=== PATIENT | male | born 1955 | race African-American/Black ===

== ENCOUNTER 2019-06-24 04:58 | Inpatient (IN) ==
[2019-06-24] MEDS ORDERED: methylPREDNISolone SOD SUC 125 MG/2 ML VIAL IV STA (05:30)
[2019-06-24] MEDS ORDERED: ALBUTEROL/IPRATROPIUM 3 ML NEB RESP TX STA (05:30)
[2019-06-24 05:37] LABS: Basophils # 0.2 10*3/uL (0.0-0.2); Basophils % 0.5 % (0.0-0.8); Eosinophils # 2.5 10*3/uL (0.0-0.87); Hematocrit 44.7 VOL% (42.0-52.0); Hemoglobin 14.6 GM/DL (14.0-18.0); Immature Granulocytes % 4.8 %; Immature Granulocytes Absolute 1.52 #; Lymphocytes # 1.3 10*3/uL (1.4-4.0); Lymphocytes % 4.3 % (21.2-54.2); Mean Corpuscular HGB Conc 32.7 GM/DL (32-36); Mean Corpuscular Volume 91.4 FL (87-102); Mean Platelet Volume 10.3 FL (9.6-12.0); Monocytes % 4.7 % (1.7-12.7); Neutrophils % 77.7 % (38.7-73.9); Platelet Count 247 T/CUMM (130-400); Red Blood Count 4.89 MC/CUMM (3.8-5.5); Red Cell Distribution Width 13.6 % (9.3-17.3); White Blood Count 31.4 T/CUMM (4-12)
[2019-06-24 06:00] LABS: Band Neutrophils 3 % (0-10); Eosinophils 10 % (0-10); Lymphocytes 5 % (20-55); Segmented Neutrophils 77 % (50-85); Total Cells Counted 100
[2019-06-24 06:01] LABS: Hypochromasia Slight; Platelet Estimate Normal
[2019-06-24] MEDS ORDERED: LEVOFLOXACIN INJ 500 MG in PREMIX 1 EACH IV STA (06:28)
[2019-06-24] MEDS ORDERED: FUROSEMIDE 40 MG/4 ML VIAL IV STA (06:28)
[2019-06-24 06:55] LABS: Alanine Aminotransferase 20 U/L (16-61); Albumin 2.7 G/DL (3.4-5.0); Alkaline Phosphatase 101 U/L (45-117); Aspartate Amino Transferase 9 U/L (0-37); Bilirubin,Total < 0.39 MG/DL (0.2-1.0); Blood Urea Nitrogen 29 MG/DL (7-18); Estimated Glom Filtration Rate 100 ML/MIN; Glucose 339 MG/DL (74-106); Osmolality,Calculated 291.8 MOS/KG (273-304); Total Protein 7.4 G/DL (6.4-8.3)
[2019-06-24] MEDS ORDERED: ACETAMINOPHEN 325 MG TABLET PO PRN (08:26)
[2019-06-24] MEDS ORDERED: DEXTROSE 50% 25 GM/50 ML VIAL IV PRN (08:26)
[2019-06-24] MEDS ORDERED: ALBUTEROL 2.5 MG/3 ML NEB RESP TX PRN (08:30)
[2019-06-24 08:56] LABS: Risk Ratio 3.26; Thyroid Stimulating Hormone 1.84 uIU/ml (0.358-3.74); VLDL CHOLESTEROL 29.8 MG/DL
[2019-06-24] MEDS: ALBUTEROL/IPRATROPIUM 3 ML NEB RESP TX SCH ×2 (13:00→19:44)
[2019-06-24] MEDS: ENOXAPARIN 40 MG/0.4 ML SYRINGE SUBCUT SCH (13:04)
[2019-06-24] MEDS: PIPERACILLIN/TAZOBACTAM 3,375 MG in SODIUM CHLORIDE 0.9% 100 ML IV SCH ×2 (13:04→23:07)
[2019-06-24] MEDS: PANTOPRAZOLE 40 MG TABLET PO SCH (13:05)
[2019-06-24] MEDS: INSULIN LISPRO 100 UNIT/ML SUBCUT SCH ×4 (13:05→23:09)
[2019-06-24] MEDS ORDERED: SODIUM CHLORIDE 0.9% 1,000 ML IV ONE ×2 (14:08→17:15)
[2019-06-24] MEDS: INSULIN NPH/REGULAR 70/30 100 UNIT/ML SUBCUT SCH (16:56)
[2019-06-24] MEDS: PENTOXIFYLLINE 400 MG TABLET PO SCH (16:56)
[2019-06-24] MEDS: TAMSULOSIN 0.4 MG CAPSULE PO SCH (18:07)
[2019-06-24 18:08] LABS: Apearance,Urine CLEAR (Clear); Bilirubin,Urine Negative (Negative); Blood, Urine Negative (Negative); Glucose,Urine (UA) >=500 mg/dL (Negative); Hyaline Casts,Urine 3 /LPF (0-3); Ketones,Urine 5 mg/dL (Negative); Mucus,Urine Occasional /LPF (Occasional); Nitrite,Urine Negative (Negative); Protein,Urine Negative; RBC,Urine 16 /HPF (0-4); Squamous Epithelial Cell,Urine Occasional /HPF (0-10); Urine Color Yellow (Yellow); Urine Urobilinogen < 2.0 EU/DL (0.2-1.0); WBC,Urine 5 /HPF (0-6)
[2019-06-24] MEDS: VANCOMYCIN INJ 2,000 MG in SODIUM CHLORIDE 0.9% 500 ML IV SCH (18:38)
[2019-06-24] MEDS: carvediloL 3.125 MG TABLET PO SCH (23:05)
[2019-06-24] MEDS: SODIUM CHLORIDE 0.9% 1,000 ML IV SCH (23:08)
[2019-06-25] MEDS: ONDANSETRON 4 MG/2 ML VIAL IV PRN ×3 (00:25→21:14)
[2019-06-25] MEDS: ALUMINUM/MAGNES/SIMETH MAX STR 30 ML UDCUP PO PRN ×2 (01:23→21:14)
[2019-06-25] MEDS: ALBUTEROL/IPRATROPIUM 3 ML NEB RESP TX SCH ×4 (01:57→19:20)
[2019-06-25 03:05] LABS: Basophils # 0.2 10*3/uL (0.0-0.2); Basophils % 0.4 % (0.0-0.8); Eosinophils # 2.3 10*3/uL (0.0-0.87); Eosinophils % 5.7 % (0.00-10.9); Hematocrit 40.9 VOL% (42.0-52.0); Hemoglobin 13.3 GM/DL (14.0-18.0); Immature Granulocytes % 6.4 %; Immature Granulocytes Absolute 2.52 #; Lymphocytes # 1.5 10*3/uL (1.4-4.0); Lymphocytes % 3.7 % (21.2-54.2); Mean Corpuscular HGB Conc 32.5 GM/DL (32-36); Mean Corpuscular Volume 92.3 FL (87-102); Mean Platelet Volume 10.3 FL (9.6-12.0); Monocytes % 9.5 % (1.7-12.7); Neutrophils % 74.3 % (38.7-73.9); Platelet Count 250 T/CUMM (130-400); Red Blood Count 4.43 MC/CUMM (3.8-5.5); Red Cell Distribution Width 13.8 % (9.3-17.3); White Blood Count 39.5 T/CUMM (4-12)
[2019-06-25 03:23] LABS: Calcium 8.7 MG/DL (8.5-10.1); Osmolality,Calculated 292.4 MOS/KG (273-304)
[2019-06-25 05:14] LABS: Anisocytosis 1+; Band Neutrophils 3 % (0-10); Eosinophils 7 % (0-10); Lymphocytes 8 % (20-55); Platelet Estimate Adequate; Segmented Neutrophils 77 % (50-85); Total Cells Counted 100
[2019-06-25 05:15] LABS: Hypochromasia Slight
[2019-06-25] MEDS: PIPERACILLIN/TAZOBACTAM 3,375 MG in SODIUM CHLORIDE 0.9% 100 ML IV SCH ×3 (05:56→21:14)
[2019-06-25] MEDS: METOCLOPRAMIDE 10 MG TABLET PO SCH (06:12)
[2019-06-25] MEDS: VANCOMYCIN INJ 2,000 MG in SODIUM CHLORIDE 0.9% 500 ML IV SCH ×2 (06:12→17:38)
[2019-06-25] MEDS ORDERED: LUBIPROSTONE 8 MCG CAPSULE PO SCH (08:00)
[2019-06-25] MEDS: DUTASTERIDE 0.5 MG CAPSULE PO SCH (08:48)
[2019-06-25] MEDS: ASPIRIN EC 81 MG TABLET PO SCH (08:48)
[2019-06-25] MEDS: carvediloL 3.125 MG TABLET PO SCH ×2 (08:48→21:14)
[2019-06-25] MEDS: INSULIN NPH/REGULAR 70/30 100 UNIT/ML SUBCUT SCH ×2 (08:48→15:34)
[2019-06-25] MEDS: LISINOPRIL/HCTZ 10-12.5 MG TABLET PO SCH (08:48)
[2019-06-25] MEDS: PANTOPRAZOLE 40 MG TABLET PO SCH (08:48)
[2019-06-25] MEDS: ATORVASTATIN 40 MG TABLET PO SCH (08:48)
[2019-06-25] MEDS: CLOPIDOGREL 75 MG TABLET PO SCH (08:48)
[2019-06-25] MEDS: PENTOXIFYLLINE 400 MG TABLET PO SCH ×3 (08:48→17:37)
[2019-06-25] MEDS: TAMSULOSIN 0.4 MG CAPSULE PO SCH ×2 (08:48→17:38)
[2019-06-25] MEDS: ENOXAPARIN 40 MG/0.4 ML SYRINGE SUBCUT SCH (08:48)
[2019-06-25] MEDS: INSULIN LISPRO 100 UNIT/ML SUBCUT SCH ×4 (08:49→21:15)
[2019-06-25] MEDS: SODIUM CHLORIDE 0.9% 1,000 ML IV SCH ×2 (08:51→16:04)
[2019-06-25] MEDS: LEVOFLOXACIN INJ 750 MG in PREMIX 1 EACH IV SCH (10:23)
[2019-06-25] MEDS: SIMETHICONE CHEW 125 MG TABLET PO PRN (13:18)
[2019-06-25] MEDS: predniSONE 10 MG TABLET PO SCH (15:58)
[2019-06-25] MEDS: SUCRALFATE 1 GM TABLET PO SCH ×2 (17:38→21:14)
[2019-06-25] MEDS: LUBIPROSTONE 8 MCG CAPSULE PO SCH (21:14)
[2019-06-26] MEDS: ALBUTEROL/IPRATROPIUM 3 ML NEB RESP TX SCH ×4 (00:15→20:23)
[2019-06-26] MEDS: SODIUM CHLORIDE 0.9% 1,000 ML IV SCH ×2 (04:22→17:23)
[2019-06-26] MEDS: PIPERACILLIN/TAZOBACTAM 3,375 MG in SODIUM CHLORIDE 0.9% 100 ML IV SCH ×3 (04:29→20:38)
[2019-06-26] MEDS: VANCOMYCIN INJ 2,000 MG in SODIUM CHLORIDE 0.9% 500 ML IV SCH ×2 (05:38→18:36)
[2019-06-26 05:42] LABS: Basophils # 0.1 10*3/uL (0.0-0.2); Basophils % 0.1 % (0.0-0.8); Eosinophils # 5.2 10*3/uL (0.0-0.87); Eosinophils % 10.8 % (0.00-10.9); Hematocrit 40.2 VOL% (42.0-52.0); Hemoglobin 12.9 GM/DL (14.0-18.0); Immature Granulocytes % 6.9 %; Immature Granulocytes Absolute 3.31 #; Lymphocytes # 1.5 10*3/uL (1.4-4.0); Lymphocytes % 3.1 % (21.2-54.2); Mean Corpuscular HGB Conc 32.1 GM/DL (32-36); Mean Corpuscular Volume 94.4 FL (87-102); Mean Platelet Volume 10.1 FL (9.6-12.0); Monocytes % 6.7 % (1.7-12.7); Neutrophils % 72.4 % (38.7-73.9); Platelet Count 224 T/CUMM (130-400); Red Blood Count 4.26 MC/CUMM (3.8-5.5); Red Cell Distribution Width 14.1 % (9.3-17.3)
[2019-06-26 05:47] LABS: White Blood Count 47.9 T/CUMM (4-12)
[2019-06-26 06:06] LABS: Band Neutrophils 15 % (0-10); Eosinophils 11 % (0-10); Segmented Neutrophils 69 % (50-85); Total Cells Counted 100
[2019-06-26 06:07] LABS: Anisocytosis 1+; Platelet Estimate Adequate
[2019-06-26 06:15] LABS: Calcium 8.1 MG/DL (8.5-10.1); Osmolality,Calculated 296.1 MOS/KG (273-304)
[2019-06-26] MEDS: METOCLOPRAMIDE 10 MG TABLET PO SCH (06:29)
[2019-06-26] MEDS: ONDANSETRON 4 MG/2 ML VIAL IV PRN ×4 (08:16→21:15)
[2019-06-26] MEDS ORDERED: GLUCAGON 1 MG VIAL IM PRN (10:51)
[2019-06-26] MEDS ORDERED: DEXTROSE 50% 25 GM/50 ML VIAL IV PRN (10:51)
[2019-06-26] MEDS: INSULIN LISPRO 100 UNIT/ML SUBCUT SCH ×4 (11:22→20:38)
[2019-06-26] MEDS: SUCRALFATE 1 GM TABLET PO SCH ×5 (11:23→20:38)
[2019-06-26 12:00] LABS: Total Protein,Body Fluid 2.7 G/DL
[2019-06-26] MEDS: INSULIN NPH/REGULAR 70/30 100 UNIT/ML SUBCUT SCH ×2 (12:16→17:23)
[2019-06-26] MEDS: DUTASTERIDE 0.5 MG CAPSULE PO SCH (12:16)
[2019-06-26] MEDS: ASPIRIN EC 81 MG TABLET PO SCH (12:16)
[2019-06-26] MEDS: ATORVASTATIN 40 MG TABLET PO SCH (12:17)
[2019-06-26] MEDS: PANTOPRAZOLE 40 MG TABLET PO SCH (12:17)
[2019-06-26] MEDS: LUBIPROSTONE 8 MCG CAPSULE PO SCH ×2 (12:17→20:38)
[2019-06-26] MEDS: carvediloL 3.125 MG TABLET PO SCH ×2 (12:17→20:38)
[2019-06-26] MEDS: CLOPIDOGREL 75 MG TABLET PO SCH (12:17)
[2019-06-26] MEDS: TAMSULOSIN 0.4 MG CAPSULE PO SCH ×3 (12:17→17:42)
[2019-06-26] MEDS: LISINOPRIL/HCTZ 10-12.5 MG TABLET PO SCH (12:17)
[2019-06-26] MEDS: PENTOXIFYLLINE 400 MG TABLET PO SCH ×3 (12:17→17:31)
[2019-06-26] MEDS: predniSONE 10 MG TABLET PO SCH (12:19)
[2019-06-26] MEDS: LEVOFLOXACIN INJ 750 MG in PREMIX 1 EACH IV SCH (12:34)
[2019-06-26] MEDS: ENOXAPARIN 40 MG/0.4 ML SYRINGE SUBCUT SCH (12:36)
[2019-06-26 12:40] LABS: Eosinophils,Pleural Fluid 5 %; Lymphocytes,Pleural Fluid 55 %; Monocytes,Pleural Fluid 1 %; Neutrophils,Pleural Fluid 37 %; RBC,Pleural Fluid 11243 T/CUMM
[2019-06-26] MEDS ORDERED: SODIUM PHOSPHATE ENEMA 133 ML BOTTLE RECTAL ONE (14:11)
[2019-06-26] MEDS ORDERED: LACTULOSE 20 GM/30 ML UDCUP PO PRN (14:14)
[2019-06-27] MEDS: ALBUTEROL/IPRATROPIUM 3 ML NEB RESP TX SCH ×4 (00:23→19:44)
[2019-06-27] MEDS: ONDANSETRON 4 MG/2 ML VIAL IV PRN ×3 (02:50→21:03)
[2019-06-27 04:59] LABS: Basophils # 0.3 10*3/uL (0.0-0.2); Basophils % 0.5 % (0.0-0.8); Eosinophils # 5.2 10*3/uL (0.0-0.87); Eosinophils % 10.9 % (0.00-10.9); Hemoglobin 13.9 GM/DL (14.0-18.0); Immature Granulocytes % 6.5 %; Immature Granulocytes Absolute 3.11 #; Lymphocytes # 1.4 10*3/uL (1.4-4.0); Lymphocytes % 2.9 % (21.2-54.2); Mean Corpuscular HGB Conc 31.6 GM/DL (32-36); Mean Corpuscular Volume 95.7 FL (87-102); Mean Platelet Volume 10.5 FL (9.6-12.0); Monocytes % 5.9 % (1.7-12.7); Neutrophils % 73.3 % (38.7-73.9); Platelet Count 199 T/CUMM (130-400); Red Cell Distribution Width 14.2 % (9.3-17.3)
[2019-06-27] MEDS: SODIUM CHLORIDE 0.9% 1,000 ML IV SCH ×2 (05:18→15:54)
[2019-06-27 05:45] LABS: Calcium 7.9 MG/DL (8.5-10.1); Osmolality,Calculated 297.5 MOS/KG (273-304)
[2019-06-27] MEDS: PIPERACILLIN/TAZOBACTAM 3,375 MG in SODIUM CHLORIDE 0.9% 100 ML IV SCH ×3 (05:57→20:56)
[2019-06-27] MEDS: VANCOMYCIN INJ 2,000 MG in SODIUM CHLORIDE 0.9% 500 ML IV SCH (05:58)
[2019-06-27] MEDS: METOCLOPRAMIDE 10 MG TABLET PO SCH (05:58)
[2019-06-27 06:35] LABS: Band Neutrophils 3 % (0-10); Eosinophils 12 % (0-10); Lymphocytes 4 % (20-55); Platelet Estimate Normal; Segmented Neutrophils 76 % (50-85); Total Cells Counted 100
[2019-06-27] MEDS ORDERED: SODIUM POLYSTYRENE SULFATE 15 GM/60 ML BOTTLE PO STA (08:09)
[2019-06-27] MEDS: PANTOPRAZOLE 40 MG TABLET PO SCH (08:51)
[2019-06-27] MEDS: predniSONE 10 MG TABLET PO SCH (08:51)
[2019-06-27] MEDS: LUBIPROSTONE 8 MCG CAPSULE PO SCH ×2 (08:51→20:56)
[2019-06-27] MEDS: DUTASTERIDE 0.5 MG CAPSULE PO SCH (08:51)
[2019-06-27] MEDS: TAMSULOSIN 0.4 MG CAPSULE PO SCH ×2 (08:51→17:22)
[2019-06-27] MEDS: carvediloL 3.125 MG TABLET PO SCH ×2 (08:51→20:56)
[2019-06-27] MEDS: CLOPIDOGREL 75 MG TABLET PO SCH (08:51)
[2019-06-27] MEDS: ATORVASTATIN 40 MG TABLET PO SCH (08:51)
[2019-06-27] MEDS: PENTOXIFYLLINE 400 MG TABLET PO SCH ×3 (08:51→16:37)
[2019-06-27] MEDS: ASPIRIN EC 81 MG TABLET PO SCH (08:51)
[2019-06-27] MEDS: LISINOPRIL/HCTZ 10-12.5 MG TABLET PO SCH (08:51)
[2019-06-27] MEDS: INSULIN LISPRO 100 UNIT/ML SUBCUT SCH ×4 (08:52→20:56)
[2019-06-27] MEDS: SUCRALFATE 1 GM TABLET PO SCH ×4 (08:52→20:56)
[2019-06-27] MEDS ORDERED: FUROSEMIDE 40 MG/4 ML VIAL IV ONE (08:56)
[2019-06-27] MEDS: INSULIN NPH/REGULAR 70/30 100 UNIT/ML SUBCUT SCH ×2 (09:19→16:37)
[2019-06-27] MEDS: LEVOFLOXACIN INJ 750 MG in PREMIX 1 EACH IV SCH (10:25)
[2019-06-27] MEDS: ENOXAPARIN 40 MG/0.4 ML SYRINGE SUBCUT SCH (10:25)
[2019-06-27] MEDS: SIMETHICONE CHEW 125 MG TABLET PO PRN (22:46)
[2019-06-28] MEDS: ALBUTEROL/IPRATROPIUM 3 ML NEB RESP TX SCH ×4 (00:23→20:27)
[2019-06-28 05:30] LABS: Calcium 8.4 MG/DL (8.5-10.1); Osmolality,Calculated 303.3 MOS/KG (273-304)
[2019-06-28 05:51] LABS: Basophils # 0.2 10*3/uL (0.0-0.2); Basophils % 0.3 % (0.0-0.8); Eosinophils # 5.4 10*3/uL (0.0-0.87); Eosinophils % 11.4 % (0.00-10.9); Hemoglobin 13.2 GM/DL (14.0-18.0); Immature Granulocytes % 8.7 %; Immature Granulocytes Absolute 4.14 #; Lymphocytes # 1.5 10*3/uL (1.4-4.0); Lymphocytes % 3.2 % (21.2-54.2); Mean Corpuscular HGB Conc 32.2 GM/DL (32-36); Mean Corpuscular Volume 94.5 FL (87-102); Mean Platelet Volume 10.8 FL (9.6-12.0); Neutrophils % 70.4 % (38.7-73.9); Platelet Count 195 T/CUMM (130-400); Red Blood Count 4.34 MC/CUMM (3.8-5.5); Red Cell Distribution Width 14.3 % (9.3-17.3)
[2019-06-28] MEDS: PIPERACILLIN/TAZOBACTAM 3,375 MG in SODIUM CHLORIDE 0.9% 100 ML IV SCH ×3 (05:53→20:33)
[2019-06-28 05:54] LABS: White Blood Count 47.7 T/CUMM (4-12)
[2019-06-28] MEDS: METOCLOPRAMIDE 10 MG TABLET PO SCH (05:54)
[2019-06-28] MEDS: VANCOMYCIN INJ 2,000 MG in SODIUM CHLORIDE 0.9% 500 ML IV SCH (05:54)
[2019-06-28 06:12] LABS: Band Neutrophils 7 % (0-10); Eosinophils 16 % (0-10); Hypochromasia 1+; Lymphocytes 6 % (20-55); Platelet Estimate Adequate; Segmented Neutrophils 68 % (50-85); Total Cells Counted 100
[2019-06-28] MEDS ORDERED: FUROSEMIDE 40 MG/4 ML VIAL IV ONE (09:05)
[2019-06-28 09:12] LABS: ABG Base Excess -1.1 MMOL/L (-2.5-2.5); ABG HCO3 23.4 MMOL/L (20-26); ABG Oxygen Saturation 94.5 % (95-100); ABG PCO2 36.9 MM HG (35-48); ABG PH 7.406 (7.35-7.45); ABG PO2 71.4 MM HG (80-95); ABG TCO2 20.3 MMOL/L (23-27)
[2019-06-28] MEDS: LEVOFLOXACIN INJ 750 MG in PREMIX 1 EACH IV SCH (09:53)
[2019-06-28] MEDS: carvediloL 3.125 MG TABLET PO SCH ×2 (10:15→20:32)
[2019-06-28] MEDS: predniSONE 10 MG TABLET PO SCH (10:15)
[2019-06-28] MEDS: INSULIN NPH/REGULAR 70/30 100 UNIT/ML SUBCUT SCH ×2 (10:15→17:05)
[2019-06-28] MEDS: ASPIRIN EC 81 MG TABLET PO SCH (10:16)
[2019-06-28] MEDS: SUCRALFATE 1 GM TABLET PO SCH ×4 (10:16→20:32)
[2019-06-28] MEDS: INSULIN LISPRO 100 UNIT/ML SUBCUT SCH ×4 (10:16→20:32)
[2019-06-28] MEDS: TAMSULOSIN 0.4 MG CAPSULE PO SCH ×2 (10:17→17:05)
[2019-06-28] MEDS: DUTASTERIDE 0.5 MG CAPSULE PO SCH (10:17)
[2019-06-28] MEDS: ATORVASTATIN 40 MG TABLET PO SCH (10:24)
[2019-06-28] MEDS: LISINOPRIL/HCTZ 10-12.5 MG TABLET PO SCH (10:24)
[2019-06-28] MEDS: LUBIPROSTONE 8 MCG CAPSULE PO SCH ×2 (10:24→20:32)
[2019-06-28] MEDS: PANTOPRAZOLE 40 MG TABLET PO SCH (10:24)
[2019-06-28] MEDS: CLOPIDOGREL 75 MG TABLET PO SCH (10:25)
[2019-06-28] MEDS: PENTOXIFYLLINE 400 MG TABLET PO SCH (10:25)
[2019-06-28] MEDS: LINEZOLID INJ 600 MG in PREMIX 1 EACH IV SCH (12:03)
[2019-06-29] MEDS: LINEZOLID INJ 600 MG in PREMIX 1 EACH IV SCH ×3 (00:10→22:58)
[2019-06-29] MEDS: ONDANSETRON 4 MG/2 ML VIAL IV PRN (01:07)
[2019-06-29] MEDS: ALBUTEROL/IPRATROPIUM 3 ML NEB RESP TX SCH ×4 (01:20→19:38)
[2019-06-29 04:14] LABS: Basophils # 0.1 10*3/uL (0.0-0.2); Basophils % 0.2 % (0.0-0.8); Eosinophils # 6.3 10*3/uL (0.0-0.87); Eosinophils % 12.5 % (0.00-10.9); Hematocrit 40.4 VOL% (42.0-52.0); Hemoglobin 12.7 GM/DL (14.0-18.0); Immature Granulocytes % 8.9 %; Immature Granulocytes Absolute 4.52 #; Lymphocytes # 1.3 10*3/uL (1.4-4.0); Lymphocytes % 2.5 % (21.2-54.2); Mean Corpuscular HGB Conc 31.4 GM/DL (32-36); Mean Corpuscular Volume 94.2 FL (87-102); Mean Platelet Volume 10.6 FL (9.6-12.0); Monocytes % 6.8 % (1.7-12.7); Neutrophils % 69.1 % (38.7-73.9); Platelet Count 187 T/CUMM (130-400); Red Blood Count 4.29 MC/CUMM (3.8-5.5); Red Cell Distribution Width 14.4 % (9.3-17.3)
[2019-06-29 04:16] LABS: White Blood Count 50.6 T/CUMM (4-12)
[2019-06-29 04:43] LABS: Band Neutrophils 8 % (0-10); Eosinophils 11 % (0-10); Hypochromasia 1+; Lymphocytes 2 % (20-55); Platelet Estimate Adequate; Segmented Neutrophils 73 % (50-85); Total Cells Counted 100
[2019-06-29 04:44] LABS: Alanine Aminotransferase < 9 U/L (16-61); Albumin 1.9 G/DL (3.4-5.0); Alkaline Phosphatase 62 U/L (45-117); Aspartate Amino Transferase 4 U/L (0-37); Bilirubin,Total < 0.39 MG/DL (0.2-1.0); Blood Urea Nitrogen 71 MG/DL (7-18); Calcium 7.5 MG/DL (8.5-10.1); Estimated Glom Filtration Rate 50 ML/MIN; Glucose 132 MG/DL (74-106); Osmolality,Calculated 303.3 MOS/KG (273-304); Total Protein 5.6 G/DL (6.4-8.3)
[2019-06-29 05:29] LABS: Total Protein (Chem) 6.3 G/DL (6.4-8.3)
[2019-06-29] MEDS: PIPERACILLIN/TAZOBACTAM 3,375 MG in SODIUM CHLORIDE 0.9% 100 ML IV SCH ×3 (06:27→20:33)
[2019-06-29] MEDS: METOCLOPRAMIDE 10 MG TABLET PO SCH (06:33)
[2019-06-29] MEDS: INSULIN LISPRO 100 UNIT/ML SUBCUT SCH ×4 (07:59→20:32)
[2019-06-29] MEDS: INSULIN NPH/REGULAR 70/30 100 UNIT/ML SUBCUT SCH ×2 (08:00→16:22)
[2019-06-29] MEDS: LUBIPROSTONE 8 MCG CAPSULE PO SCH ×2 (08:28→20:32)
[2019-06-29] MEDS: TAMSULOSIN 0.4 MG CAPSULE PO SCH ×2 (08:28→17:08)
[2019-06-29] MEDS: LISINOPRIL/HCTZ 10-12.5 MG TABLET PO SCH (08:28)
[2019-06-29] MEDS: SUCRALFATE 1 GM TABLET PO SCH ×4 (08:28→20:32)
[2019-06-29] MEDS: LEVOFLOXACIN INJ 750 MG in PREMIX 1 EACH IV SCH (08:28)
[2019-06-29] MEDS: ASPIRIN EC 81 MG TABLET PO SCH (08:28)
[2019-06-29] MEDS: carvediloL 3.125 MG TABLET PO SCH ×2 (08:28→20:32)
[2019-06-29] MEDS: PANTOPRAZOLE 40 MG TABLET PO SCH (08:28)
[2019-06-29] MEDS: predniSONE 10 MG TABLET PO SCH (08:28)
[2019-06-29] MEDS: ATORVASTATIN 40 MG TABLET PO SCH (08:28)
[2019-06-29] MEDS: DUTASTERIDE 0.5 MG CAPSULE PO SCH (08:28)
[2019-06-29 08:56] LABS: Albumin (SPE) Rel % 49.6 %; Alpha 1 (SPE) Rel % 5.4 %; Alpha 2 (SPE) Rel % 15.7 %; Beta (SPE) Rel % 9.6 %; Gamma (SPE) Rel % 19.7 %
[2019-06-29 09:04] LABS: Albumin (SPE) 3.1 G/DL (3.2-5.3); Alpha 1 (SPE) 0.3 G/DL (0.1-0.4); Beta (SPE) 0.6 G/DL (0.5-1.1); Gamma (SPE) 1.2 G/DL (0.7-1.7)
[2019-06-29] MEDS ORDERED: ALTEPLASE 5 MG in SYRINGE 1 EACH INTRAPLEUR ONE (10:00)
[2019-06-29 13:24] LABS: Basophils # 0.1 10*3/uL (0.0-0.2); Basophils % 0.1 % (0.0-0.8); Eosinophils # 6.9 10*3/uL (0.0-0.87); Eosinophils % 13.6 % (0.00-10.9); Hematocrit 40.9 VOL% (42.0-52.0); Hemoglobin 13.1 GM/DL (14.0-18.0); Immature Granulocytes % 6.9 %; Immature Granulocytes Absolute 3.53 #; Lymphocytes # 1.1 10*3/uL (1.4-4.0); Lymphocytes % 2.1 % (21.2-54.2); Mean Platelet Volume 10.4 FL (9.6-12.0); Monocytes % 5.2 % (1.7-12.7); Neutrophils % 72.1 % (38.7-73.9); Platelet Count 172 T/CUMM (130-400); Red Blood Count 4.35 MC/CUMM (3.8-5.5); Red Cell Distribution Width 14.4 % (9.3-17.3)
[2019-06-29 14:04] LABS: Band Neutrophils 32 % (0-10); Eosinophils 14 % (0-10); Lymphocytes 3 % (20-55); Platelet Estimate Normal; Segmented Neutrophils 46 % (50-85); Total Cells Counted 100
[2019-06-29 14:05] LABS: Anisocytosis 1+; Macrocytosis 1+
[2019-06-29 15:08] LABS: Total Protein 24 Hr Ur Result 228 MG/24HR (0-149.1); Total Volume,Urine 600 ML (400-2000)
[2019-06-29] MEDS: DORNASE ALFA 2.5 MG/2.5 ML VIAL RESP TX SCH (19:38)
[2019-06-29] MEDS ORDERED: HYDROmorphone 2 MG/1 ML VIAL IV ONE (23:56)
[2019-06-30] MEDS: ALBUTEROL/IPRATROPIUM 3 ML NEB RESP TX SCH ×4 (01:01→20:25)
[2019-06-30] MEDS: ALUMINUM/MAGNES/SIMETH MAX STR 30 ML UDCUP PO PRN (02:08)
[2019-06-30 04:02] LABS: ABG Base Excess -1.9 MMOL/L (-2.5-2.5); ABG HCO3 22.7 MMOL/L (20-26); ABG PCO2 48.3 MM HG (35-48); ABG PH 7.319 (7.35-7.45); ABG TCO2 21.9 MMOL/L (23-27); Allen Test Positive; Pt O2 Delivery Device Other
[2019-06-30] MEDS: PIPERACILLIN/TAZOBACTAM 3,375 MG in SODIUM CHLORIDE 0.9% 100 ML IV SCH (05:43)
[2019-06-30] MEDS: METOCLOPRAMIDE 10 MG TABLET PO SCH (05:43)
[2019-06-30 06:20] LABS: 24 Hr Protein (Bench) 228 MG/24HR (0-149.1)
[2019-06-30 06:20] LABS: Basophils # 0.1 10*3/uL (0.0-0.2); Basophils % 0.2 % (0.0-0.8); Eosinophils % 13.3 % (0.00-10.9); Hematocrit 40.1 VOL% (42.0-52.0); Hemoglobin 13.1 GM/DL (14.0-18.0); Immature Granulocytes % 7.3 %; Immature Granulocytes Absolute 3.85 #; Lymphocytes # 1.6 10*3/uL (1.4-4.0); Mean Corpuscular HGB Conc 32.7 GM/DL (32-36); Mean Platelet Volume 10.7 FL (9.6-12.0); Monocytes % 5.5 % (1.7-12.7); Neutrophils % 70.7 % (38.7-73.9); Platelet Count 162 T/CUMM (130-400); Red Blood Count 4.31 MC/CUMM (3.8-5.5); Red Cell Distribution Width 14.2 % (9.3-17.3)
[2019-06-30 06:21] LABS: White Blood Count 52.6 T/CUMM (4-12)
[2019-06-30 06:37] LABS: Band Neutrophils 5 % (0-10); Eosinophils 16 % (0-10); Hypochromasia 1+; Lymphocytes 4 % (20-55); Platelet Estimate Adequate; Segmented Neutrophils 69 % (50-85); Total Cells Counted 100
[2019-06-30 06:38] LABS: Macrocytosis Slight
[2019-06-30 06:44] LABS: Alanine Aminotransferase 9 U/L (16-61); Albumin 1.8 G/DL (3.4-5.0); Alkaline Phosphatase 59 U/L (45-117); Aspartate Amino Transferase 4 U/L (0-37); Bilirubin,Total < 0.39 MG/DL (0.2-1.0); Blood Urea Nitrogen 87 MG/DL (7-18); Calcium 7.6 MG/DL (8.5-10.1); Estimated Glom Filtration Rate 33 ML/MIN; Glucose 120 MG/DL (74-106); Osmolality,Calculated 304.5 MOS/KG (273-304); Total Protein 5.5 G/DL (6.4-8.3)
[2019-06-30] MEDS: DORNASE ALFA 2.5 MG/2.5 ML VIAL RESP TX SCH ×2 (07:45→20:45)
[2019-06-30] MEDS: INSULIN LISPRO 100 UNIT/ML SUBCUT SCH ×4 (08:12→21:15)
[2019-06-30] MEDS: DUTASTERIDE 0.5 MG CAPSULE PO SCH ×2 (08:28→08:29)
[2019-06-30] MEDS: LISINOPRIL/HCTZ 10-12.5 MG TABLET PO SCH ×2 (08:29→08:33)
[2019-06-30] MEDS: predniSONE 10 MG TABLET PO SCH ×2 (08:29→08:32)
[2019-06-30] MEDS: ASPIRIN EC 81 MG TABLET PO SCH ×2 (08:29→08:30)
[2019-06-30] MEDS: carvediloL 3.125 MG TABLET PO SCH ×3 (08:29→20:44)
[2019-06-30] MEDS: TAMSULOSIN 0.4 MG CAPSULE PO SCH ×3 (08:29→17:30)
[2019-06-30] MEDS: INSULIN NPH/REGULAR 70/30 100 UNIT/ML SUBCUT SCH ×3 (08:29→16:40)
[2019-06-30] MEDS: SUCRALFATE 1 GM TABLET PO SCH ×5 (08:29→21:14)
[2019-06-30] MEDS: ATORVASTATIN 40 MG TABLET PO SCH ×2 (08:29→08:31)
[2019-06-30] MEDS: PANTOPRAZOLE 40 MG TABLET PO SCH ×2 (08:29→08:33)
[2019-06-30] MEDS: AMPICILLIN INJ 2,000 MG in SODIUM CHLORIDE 0.9% 100 ML IV SCH ×2 (10:40→17:30)
[2019-06-30] MEDS: LINEZOLID INJ 600 MG in PREMIX 1 EACH IV SCH ×2 (11:05→22:54)
[2019-06-30] MEDS ORDERED: SODIUM CHLORIDE 0.9% 1,000 ML IV SCH (12:00)
[2019-06-30] MEDS ORDERED: SODIUM CHLORIDE 0.9% 500 ML IV ONE (15:51)
[2019-06-30] MEDS ORDERED: LEVOFLOXACIN INJ 750 MG in PREMIX 1 EACH IV SCH (16:00)
[2019-06-30] MEDS: NOREPINEPHRINE 8 MG in SODIUM CHLORIDE 0.9% 242 ML IV PRN (19:39)
[2019-06-30] MEDS: SIMETHICONE CHEW 125 MG TABLET PO PRN (22:07)
[2019-07-01] MEDS: ALBUTEROL/IPRATROPIUM 3 ML NEB RESP TX SCH ×5 (00:30→19:35)
[2019-07-01] MEDS: AMPICILLIN INJ 2,000 MG in SODIUM CHLORIDE 0.9% 100 ML IV SCH (02:04)
[2019-07-01 04:29] LABS: ABG Base Excess -5.1 MMOL/L (-2.5-2.5); ABG HCO3 20.1 MMOL/L (20-26); ABG Oxygen Saturation 92.9 % (95-100); ABG PCO2 44.7 MM HG (35-48); ABG PH 7.291 (7.35-7.45); ABG TCO2 19.2 MMOL/L (23-27); Allen Test Positive; Pt O2 Delivery Device Other
[2019-07-01] MEDS: METOCLOPRAMIDE 10 MG TABLET PO SCH (05:47)
[2019-07-01 05:54] LABS: Basophils # 0.1 10*3/uL (0.0-0.2); Basophils % 0.1 % (0.0-0.8); Eosinophils # 8.7 10*3/uL (0.0-0.87); Eosinophils % 15.4 % (0.00-10.9); Hematocrit 40.9 VOL% (42.0-52.0); Hemoglobin 13.1 GM/DL (14.0-18.0); Immature Granulocytes % 8.3 %; Immature Granulocytes Absolute 4.66 #; Lymphocytes # 1.4 10*3/uL (1.4-4.0); Lymphocytes % 2.5 % (21.2-54.2); Mean Corpuscular Volume 93.4 FL (87-102); Mean Platelet Volume 11.4 FL (9.6-12.0); Monocytes % 5.5 % (1.7-12.7); Neutrophils % 68.2 % (38.7-73.9); Platelet Count 155 T/CUMM (130-400); Red Blood Count 4.38 MC/CUMM (3.8-5.5); Red Cell Distribution Width 14.2 % (9.3-17.3)
[2019-07-01 05:56] LABS: White Blood Count 56.3 T/CUMM (4-12)
[2019-07-01 06:17] LABS: Alanine Aminotransferase 10 U/L (16-61); Albumin 1.8 G/DL (3.4-5.0); Alkaline Phosphatase 57 U/L (45-117); Aspartate Amino Transferase 8 U/L (0-37); Band Neutrophils 5 % (0-10); Bilirubin,Total < 0.39 MG/DL (0.2-1.0); Blood Urea Nitrogen 95 MG/DL (7-18); Eosinophils 20 % (0-10); Estimated Glom Filtration Rate 25 ML/MIN; Glucose 164 MG/DL (74-106); Hypochromasia Slight; Lymphocytes 2 % (20-55); Microcytosis Slight; Osmolality,Calculated 305.8 MOS/KG (273-304); Segmented Neutrophils 68 % (50-85); Total Cells Counted 100; Total Protein 5.7 G/DL (6.4-8.3)
[2019-07-01 06:18] LABS: Platelet Estimate Adequate
[2019-07-01] MEDS: DORNASE ALFA 2.5 MG/2.5 ML VIAL RESP TX SCH ×2 (07:07→19:35)
[2019-07-01] MEDS ORDERED: ALTEPLASE 5 MG in SYRINGE 1 EACH INTRAPLEUR ONE (10:00)
[2019-07-01] MEDS: INSULIN LISPRO 100 UNIT/ML SUBCUT SCH ×4 (11:05→21:10)
[2019-07-01] MEDS: INSULIN NPH/REGULAR 70/30 100 UNIT/ML SUBCUT SCH ×2 (11:05→17:15)
[2019-07-01] MEDS: SUCRALFATE 1 GM TABLET PO SCH ×4 (11:05→21:08)
[2019-07-01] MEDS: predniSONE 10 MG TABLET PO SCH (11:06)
[2019-07-01] MEDS: PANTOPRAZOLE 40 MG TABLET PO SCH (11:06)
[2019-07-01] MEDS: HYDROCORTISONE 100 MG VIAL IV SCH ×2 (11:06→18:03)
[2019-07-01] MEDS: MEROPENEM 500 MG in SODIUM CHLORIDE 0.9% 100 ML IV SCH ×2 (11:06→21:13)
[2019-07-01] MEDS: carvediloL 3.125 MG TABLET PO SCH ×2 (11:06→21:08)
[2019-07-01] MEDS: TAMSULOSIN 0.4 MG CAPSULE PO SCH ×2 (11:07→18:03)
[2019-07-01] MEDS: ASPIRIN EC 81 MG TABLET PO SCH (11:07)
[2019-07-01] MEDS: DUTASTERIDE 0.5 MG CAPSULE PO SCH (11:07)
[2019-07-01] MEDS: ATORVASTATIN 40 MG TABLET PO SCH (11:07)
[2019-07-01] MEDS: LINEZOLID INJ 600 MG in PREMIX 1 EACH IV SCH (14:55)
[2019-07-01 16:01] LABS: ABG Base Excess -6.4 MMOL/L (-2.5-2.5); ABG HCO3 19.2 MMOL/L (20-26); ABG Oxygen Saturation 94.7 % (95-100); ABG PCO2 40.7 MM HG (35-48); ABG PH 7.296 (7.35-7.45); ABG PO2 75.2 MM HG (80-95); ABG TCO2 17.8 MMOL/L (23-27); Allen Test Positive; Pt O2 Delivery Device Other
[2019-07-01 19:55] VITALS: BP 88/58
[2019-07-01] MEDS: NOREPINEPHRINE 8 MG in SODIUM CHLORIDE 0.9% 242 ML IV PRN (21:19)
[2019-07-02] MEDS: ALBUTEROL/IPRATROPIUM 3 ML NEB RESP TX SCH ×4 (00:30→19:45)
[2019-07-02] MEDS: HYDROCORTISONE 100 MG VIAL IV SCH ×3 (01:53→18:51)
[2019-07-02 03:42] LABS: Pt O2 Delivery Device Other
[2019-07-02 03:43] LABS: ABG Base Excess -6.3 MMOL/L (-2.5-2.5); ABG HCO3 20.1 MMOL/L (20-26); ABG Oxygen Saturation 94.7 % (95-100); ABG PCO2 43.2 MM HG (35-48); ABG PH 7.285 (7.35-7.45); ABG PO2 76.9 MM HG (80-95); ABG TCO2 21.4 MMOL/L (23-27)
[2019-07-02] MEDS: LINEZOLID INJ 600 MG in PREMIX 1 EACH IV SCH ×2 (03:51→16:56)
[2019-07-02 05:34] LABS: Basophils # 0.1 10*3/uL (0.0-0.2); Basophils % 0.2 % (0.0-0.8); Eosinophils # 8.5 10*3/uL (0.0-0.87); Eosinophils % 15.4 % (0.00-10.9); Hematocrit 38.6 VOL% (42.0-52.0); Hemoglobin 12.3 GM/DL (14.0-18.0); Immature Granulocytes % 7.4 %; Immature Granulocytes Absolute 4.11 #; Lymphocytes # 1.1 10*3/uL (1.4-4.0); Mean Corpuscular HGB Conc 31.9 GM/DL (32-36); Mean Corpuscular Volume 94.6 FL (87-102); Mean Platelet Volume 11.3 FL (9.6-12.0); Monocytes % 4.8 % (1.7-12.7); Neutrophils % 70.2 % (38.7-73.9); Platelet Count 137 T/CUMM (130-400); Red Blood Count 4.08 MC/CUMM (3.8-5.5); Red Cell Distribution Width 14.6 % (9.3-17.3)
[2019-07-02 05:39] LABS: White Blood Count 55.2 T/CUMM (4-12)
[2019-07-02] MEDS: METOCLOPRAMIDE 10 MG TABLET PO SCH (05:43)
[2019-07-02 05:51] LABS: Calcium 7.7 MG/DL (8.5-10.1); Osmolality,Calculated 309.8 MOS/KG (273-304)
[2019-07-02 06:09] LABS: Band Neutrophils 2 % (0-10); Eosinophils 18 % (0-10); Lymphocytes 1 % (20-55); Platelet Estimate Decreased; Segmented Neutrophils 74 % (50-85); Total Cells Counted 100
[2019-07-02] MEDS: DORNASE ALFA 2.5 MG/2.5 ML VIAL RESP TX SCH ×2 (07:55→19:51)
[2019-07-02] MEDS: SUCRALFATE 1 GM TABLET PO SCH ×5 (09:03→22:00)
[2019-07-02] MEDS: TAMSULOSIN 0.4 MG CAPSULE PO SCH ×3 (09:03→18:47)
[2019-07-02] MEDS: ATORVASTATIN 40 MG TABLET PO SCH ×2 (09:03→09:16)
[2019-07-02] MEDS: DUTASTERIDE 0.5 MG CAPSULE PO SCH ×2 (09:03→09:15)
[2019-07-02] MEDS: PANTOPRAZOLE 40 MG TABLET PO SCH ×2 (09:03→09:16)
[2019-07-02] MEDS: INSULIN NPH/REGULAR 70/30 100 UNIT/ML SUBCUT SCH ×2 (09:03→16:56)
[2019-07-02] MEDS: INSULIN LISPRO 100 UNIT/ML SUBCUT SCH ×4 (09:03→22:25)
[2019-07-02] MEDS: ASPIRIN EC 81 MG TABLET PO SCH ×2 (09:03→09:15)
[2019-07-02] MEDS: carvediloL 3.125 MG TABLET PO SCH ×3 (09:03→23:41)
[2019-07-02] MEDS: LEVOFLOXACIN INJ 750 MG in PREMIX 1 EACH IV SCH (09:04)
[2019-07-02] MEDS: MEROPENEM 500 MG in SODIUM CHLORIDE 0.9% 100 ML IV SCH ×2 (10:31→23:24)
[2019-07-02] MEDS: ALTEPLASE 5 MG in SYRINGE 1 EACH INTRAPLEUR ONE ×2 (10:45→10:52)
[2019-07-02 15:00] LABS: Hepatitis B Surface Ag Quant 0.87 Index; Hepatitis B Surface Ag Result Negative (Negative); Hepatitis C Virus Ab Result Negative (Negative)
[2019-07-03] MEDS: ALBUTEROL/IPRATROPIUM 3 ML NEB RESP TX SCH ×4 (00:35→19:48)
[2019-07-03] MEDS: HYDROCORTISONE 100 MG VIAL IV SCH ×3 (01:50→18:22)
[2019-07-03] MEDS: LINEZOLID INJ 600 MG in PREMIX 1 EACH IV SCH ×2 (03:20→16:06)
[2019-07-03 04:20] LABS: Basophils # 0.1 10*3/uL (0.0-0.2); Basophils % 0.1 % (0.0-0.8); Eosinophils # 8.1 10*3/uL (0.0-0.87); Eosinophils % 13.8 % (0.00-10.9); Hemoglobin 12.5 GM/DL (14.0-18.0); Immature Granulocytes % 10.3 %; Immature Granulocytes Absolute 6.01 #; Lymphocytes # 0.7 10*3/uL (1.4-4.0); Lymphocytes % 1.3 % (21.2-54.2); Mean Corpuscular HGB Conc 32.9 GM/DL (32-36); Mean Corpuscular Volume 91.8 FL (87-102); Mean Platelet Volume 11.2 FL (9.6-12.0); Monocytes % 4.7 % (1.7-12.7); Neutrophils % 69.8 % (38.7-73.9); Platelet Count 138 T/CUMM (130-400); Red Blood Count 4.14 MC/CUMM (3.8-5.5); Red Cell Distribution Width 14.6 % (9.3-17.3)
[2019-07-03 04:25] LABS: Calcium 8.1 MG/DL (8.5-10.1); Osmolality,Calculated 320.8 MOS/KG (273-304)
[2019-07-03 04:29] LABS: White Blood Count 58.3 T/CUMM (4-12)
[2019-07-03 04:41] LABS: Band Neutrophils 5 % (0-10); Eosinophils 14 % (0-10); Lymphocytes 4 % (20-55); Platelet Estimate Normal; Segmented Neutrophils 70 % (50-85); Total Cells Counted 100
[2019-07-03 04:42] LABS: Hypochromasia 1+; Microcytosis Slight
[2019-07-03] MEDS: METOCLOPRAMIDE 10 MG TABLET PO SCH (05:53)
[2019-07-03] MEDS: DORNASE ALFA 2.5 MG/2.5 ML VIAL RESP TX SCH ×2 (07:30→19:48)
[2019-07-03] MEDS: INSULIN LISPRO 100 UNIT/ML SUBCUT SCH ×4 (08:21→20:28)
[2019-07-03] MEDS: INSULIN NPH/REGULAR 70/30 100 UNIT/ML SUBCUT SCH (08:21)
[2019-07-03] MEDS ORDERED: INSULIN NPH/REGULAR 70/30 100 UNIT/ML SUBCUT SCH ×2 (08:31)
[2019-07-03] MEDS: TAMSULOSIN 0.4 MG CAPSULE PO SCH ×2 (09:13→17:52)
[2019-07-03] MEDS: SUCRALFATE 1 GM TABLET PO SCH ×4 (09:13→20:28)
[2019-07-03] MEDS: DUTASTERIDE 0.5 MG CAPSULE PO SCH (09:13)
[2019-07-03] MEDS: ASPIRIN EC 81 MG TABLET PO SCH (09:13)
[2019-07-03] MEDS: ATORVASTATIN 40 MG TABLET PO SCH (09:13)
[2019-07-03] MEDS: PANTOPRAZOLE 40 MG TABLET PO SCH (09:14)
[2019-07-03] MEDS: carvediloL 3.125 MG TABLET PO SCH ×2 (09:14→20:28)
[2019-07-03] MEDS: MEROPENEM 500 MG in SODIUM CHLORIDE 0.9% 100 ML IV SCH ×2 (09:14→21:12)
[2019-07-03] MEDS ORDERED: EPINEPHrine 1 MG/10 ML SYRINGE ONE (15:02)
[2019-07-03] MEDS ORDERED: CALCIUM CHLORIDE 1,000 MG/10 ML SYRINGE IV ONE ×2 (15:02→15:32)
[2019-07-03] MEDS ORDERED: SODIUM BICARBONATE 10 MEQ/10 ML SYRINGE IV ONE (15:02)
[2019-07-03] MEDS ORDERED: PHENYLEPHRINE DRIP 40 MG/250 ML PREMIX IV ONE (15:03)
[2019-07-03] MEDS: PHENYLEPHRINE DRIP 40 MG/250 ML PREMIX IV PRN ×2 (15:06→19:57)
[2019-07-03] MEDS ORDERED: CALCIUM GLUCONATE 1,000 MG/10 ML VIAL IV ONE (15:31)
[2019-07-03] MEDS: PROPOFOL 1,000 MG/100 ML BOTTLE IV SCH (22:35)
[2019-07-04] MEDS: PROPOFOL 1,000 MG/100 ML BOTTLE IV SCH ×6 (01:30→15:03)
[2019-07-04] MEDS: ALBUTEROL/IPRATROPIUM 3 ML NEB RESP TX SCH ×4 (01:58→20:20)
[2019-07-04] MEDS: HYDROCORTISONE 100 MG VIAL IV SCH ×3 (02:20→17:59)
[2019-07-04] MEDS: LINEZOLID INJ 600 MG in PREMIX 1 EACH IV SCH (02:20)
[2019-07-04 04:20] LABS: ABG Base Excess -9.1 MMOL/L (-2.5-2.5); ABG HCO3 16.7 MMOL/L (20-26); ABG Oxygen Saturation 91.6 % (95-100); ABG PCO2 35.7 MM HG (35-48); ABG PH 7.287 (7.35-7.45); ABG PO2 65.1 MM HG (80-95); ABG TCO2 17.8 MMOL/L (23-27)
[2019-07-04 04:27] LABS: Basophils # 0.5 10*3/uL (0.0-0.2); Basophils % 0.7 % (0.0-0.8); Eosinophils # 11.5 10*3/uL (0.0-0.87); Eosinophils % 16.9 % (0.00-10.9); Hematocrit 40.2 VOL% (42.0-52.0); Hemoglobin 13.5 GM/DL (14.0-18.0); Immature Granulocytes % 10.4 %; Immature Granulocytes Absolute 7.06 #; Lymphocytes % 1.4 % (21.2-54.2); Mean Corpuscular HGB Conc 33.6 GM/DL (32-36); Mean Corpuscular Volume 89.5 FL (87-102); Mean Platelet Volume 11.5 FL (9.6-12.0); Monocytes % 4.5 % (1.7-12.7); NRBC # 0.06 10*3/uL; Neutrophils % 66.1 % (38.7-73.9); Platelet Count 124 T/CUMM (130-400); Red Blood Count 4.49 MC/CUMM (3.8-5.5); Red Cell Distribution Width 15.4 % (9.3-17.3)
[2019-07-04 04:31] LABS: White Blood Count 68.1 T/CUMM (4-12)
[2019-07-04 04:49] LABS: Calcium 7.8 MG/DL (8.5-10.1); Osmolality,Calculated 321.8 MOS/KG (273-304)
[2019-07-04 04:52] LABS: Band Neutrophils 1 % (0-10); Eosinophils 21 % (0-10); Hypochromasia Slight; Lymphocytes 1 % (20-55); Platelet Estimate Decreased; Segmented Neutrophils 73 % (50-85); Total Cells Counted 100
[2019-07-04 04:53] LABS: Microcytosis Slight
[2019-07-04] MEDS: METOCLOPRAMIDE 10 MG TABLET PO SCH (05:37)
[2019-07-04] MEDS ORDERED: VANCOMYCIN INJ 1,000 MG in SODIUM CHLORIDE 0.9% 250 ML IV PRN (07:24)
[2019-07-04] MEDS: DEXTROSE 10% 250 ML BAG IV PRN ×5 (07:37→17:38)
[2019-07-04] MEDS: fentaNYL INJ 1,250 MCG in SODIUM CHLORIDE 0.9% 225 ML IV PRN ×3 (07:56→23:41)
[2019-07-04] MEDS ORDERED: DEXTROSE 10% 250 ML BAG IV PRN (08:00)
[2019-07-04] MEDS ORDERED: INSULIN NPH/REGULAR 70/30 100 UNIT/ML SUBCUT SCH ×2 (08:43)
[2019-07-04] MEDS: DORNASE ALFA 2.5 MG/2.5 ML VIAL RESP TX SCH ×2 (08:45→20:30)
[2019-07-04] MEDS: SUCRALFATE 1 GM TABLET PO SCH ×4 (08:48→21:51)
[2019-07-04] MEDS: ATORVASTATIN 40 MG TABLET PO SCH (08:48)
[2019-07-04] MEDS: ASPIRIN EC 81 MG TABLET PO SCH (08:48)
[2019-07-04] MEDS: INSULIN LISPRO 100 UNIT/ML SUBCUT SCH ×4 (08:48→22:05)
[2019-07-04] MEDS: DUTASTERIDE 0.5 MG CAPSULE PO SCH (08:48)
[2019-07-04] MEDS: TAMSULOSIN 0.4 MG CAPSULE PO SCH ×2 (08:48→17:44)
[2019-07-04] MEDS: PANTOPRAZOLE 40 MG TABLET PO SCH (08:49)
[2019-07-04] MEDS: carvediloL 3.125 MG TABLET PO SCH ×2 (08:49→21:50)
[2019-07-04] MEDS ORDERED: VANCOMYCIN INJ 2,000 MG in SODIUM CHLORIDE 0.9% 500 ML IV ONE (09:00)
[2019-07-04] MEDS: LEVOFLOXACIN INJ 750 MG in PREMIX 1 EACH IV SCH (09:09)
[2019-07-04] MEDS: PHENYLEPHRINE INJ 160 MG in SODIUM CHLORIDE 0.9% 234 ML IV PRN ×3 (10:25→17:33)
[2019-07-04] MEDS: MEROPENEM 500 MG in SODIUM CHLORIDE 0.9% 100 ML IV SCH ×2 (10:44→21:50)
[2019-07-04] MEDS: NOREPINEPHRINE 16 MG in SODIUM CHLORIDE 0.9% 234 ML IV PRN ×2 (12:04→23:39)
[2019-07-04] MEDS ORDERED: SODIUM BICARBONATE 10 MEQ/10 ML SYRINGE IV ONE (13:32)
[2019-07-04] MEDS ORDERED: EPINEPHrine 1 MG/10 ML SYRINGE ONE (13:32)
[2019-07-04] MEDS ORDERED: DEXTROSE 50% 25 GM/50 ML SYRINGE IV ONE ×2 (15:30→16:08)
[2019-07-04] MEDS: CISATRACURIUM 200 MG in SODIUM CHLORIDE 0.9% 180 ML IV SCH ×2 (15:41→23:40)
[2019-07-04 15:54] LABS: ABG Base Excess -17.5 MMOL/L (-2.5-2.5); ABG HCO3 11.4 MMOL/L (20-26); ABG Oxygen Saturation 84.2 % (95-100); ABG TCO2 13.3 MMOL/L (23-27)
[2019-07-04 15:55] LABS: ABG PH 7.037 (7.35-7.45)
[2019-07-04] MEDS ORDERED: SODIUM BICARBONATE 50 MEQ/50 ML SYRINGE IV ONE (16:30)
[2019-07-04 16:41] LABS: ABG Base Excess -14.1 MMOL/L (-2.5-2.5); ABG HCO3 15.4 MMOL/L (20-26); ABG Oxygen Saturation 91.2 % (95-100); ABG PCO2 50.9 MM HG (35-48); ABG PO2 72.5 MM HG (80-95)
[2019-07-04 16:44] LABS: ABG PH 7.099 (7.35-7.45)
[2019-07-04] MEDS: GLUCAGON 1 MG VIAL IM PRN ×2 (17:43→18:25)
[2019-07-04 17:49] LABS: ABG HCO3 13.1 MMOL/L (20-26); ABG Oxygen Saturation 90.3 % (95-100); ABG PCO2 48.7 MM HG (35-48); ABG PO2 72.9 MM HG (80-95); ABG TCO2 14.1 MMOL/L (23-27)
[2019-07-04 17:51] LABS: ABG PH 7.098 (7.35-7.45)
[2019-07-04] MEDS ORDERED: SODIUM BICARB INJ 150 MEQ in DEXTROSE 5% 850 ML IV SCH (19:00)
[2019-07-05 00:36] LABS: ABG Base Excess -18.2 MMOL/L (-2.5-2.5); ABG HCO3 11.1 MMOL/L (20-26); ABG PO2 81.3 MM HG (80-95); ABG TCO2 11.9 MMOL/L (23-27)
[2019-07-05 00:39] LABS: ABG PH 7.051 (7.35-7.45)
[2019-07-05] MEDS ORDERED: SODIUM BICARBONATE 50 MEQ/50 ML VIAL IV ONE ×2 (00:41→04:58)
[2019-07-05] MEDS: PHENYLEPHRINE INJ 160 MG in SODIUM CHLORIDE 0.9% 234 ML IV PRN (01:10)
[2019-07-05] MEDS: PROPOFOL 1,000 MG/100 ML BOTTLE IV SCH (01:29)
[2019-07-05] MEDS: ALBUTEROL/IPRATROPIUM 3 ML NEB RESP TX SCH (01:59)
[2019-07-05] MEDS: HYDROCORTISONE 100 MG VIAL IV SCH (02:52)
[2019-07-05] MEDS: fentaNYL INJ 1,250 MCG in SODIUM CHLORIDE 0.9% 225 ML IV PRN (04:45)
[2019-07-05 04:47] LABS: ABG Base Excess -20.2 MMOL/L (-2.5-2.5); ABG HCO3 9.8 MMOL/L (20-26); ABG PCO2 49.5 MM HG (35-48); ABG PO2 76.4 MM HG (80-95); ABG TCO2 11.5 MMOL/L (23-27)
[2019-07-05 04:54] LABS: ABG PH 6.983 (7.35-7.45)
[2019-07-05 05:09] LABS: Basophils # 0.2 10*3/uL (0.0-0.2); Basophils % 0.3 % (0.0-0.8); Eosinophils # 4.7 10*3/uL (0.0-0.87); Eosinophils % 9.5 % (0.00-10.9); Hematocrit 36.8 VOL% (42.0-52.0); Hemoglobin 11.6 GM/DL (14.0-18.0); Immature Granulocytes % 10.3 %; Lymphocytes # 1.7 10*3/uL (1.4-4.0); Lymphocytes % 3.4 % (21.2-54.2); Mean Corpuscular HGB Conc 31.5 GM/DL (32-36); Mean Corpuscular Volume 95.6 FL (87-102); Monocytes % 2.4 % (1.7-12.7); NRBC # 0.33 10*3/uL; Neutrophils % 74.1 % (38.7-73.9); Platelet Count 67 T/CUMM (130-400); Red Blood Count 3.85 MC/CUMM (3.8-5.5); Red Cell Distribution Width 16.6 % (9.3-17.3)
[2019-07-05 05:22] LABS: White Blood Count 48.7 T/CUMM (4-12)
[2019-07-05 05:32] LABS: Calcium 7.2 MG/DL (8.5-10.1); Osmolality,Calculated 329.7 MOS/KG (273-304)
[2019-07-05 05:43] LABS: Band Neutrophils 17 % (0-10); Eosinophils 11 % (0-10); Lymphocytes 1 % (20-55); Nucleated Red Blood Cells 2 (0-5); Segmented Neutrophils 66 % (50-85); Total Cells Counted 100
[2019-07-05 05:44] LABS: Anisocytosis 1+; Giant Platelets Few; Smudge Cells 2+
[2019-07-05 05:45] LABS: Platelet Estimate Decreased; Poikilocytosis 1+
[2019-07-05] MEDS ORDERED: SODIUM POLYSTYRENE SULFATE 15 GM/60 ML BOTTLE PO ONE (05:49)
[2019-07-05] MEDS: METOCLOPRAMIDE 10 MG TABLET PO SCH (06:42)
[2019-07-05] MEDS: INSULIN LISPRO 100 UNIT/ML SUBCUT SCH (07:59)
[2019-07-05] MEDS: DUTASTERIDE 0.5 MG CAPSULE PO SCH (07:59)
[2019-07-05] MEDS: SUCRALFATE 1 GM TABLET PO SCH (07:59)
[2019-07-05] MEDS: ASPIRIN EC 81 MG TABLET PO SCH (07:59)
[2019-07-05] MEDS: TAMSULOSIN 0.4 MG CAPSULE PO SCH (07:59)
[2019-07-05] MEDS: carvediloL 3.125 MG TABLET PO SCH (08:00)
[2019-07-05] MEDS: ATORVASTATIN 40 MG TABLET PO SCH (08:00)
[2019-07-05] MEDS ORDERED: PANTOPRAZOLE 40 MG VIAL IV SCH (09:00)
[2019-07-06] MEDS ORDERED: LEVOFLOXACIN INJ 500 MG in PREMIX 1 EACH IV SCH (09:00)
== END 2019-07-05 12:04 | disposition expired | DRG 871 ==
LOC: EDBD → EDUNIT# → N.ED 04:58 → N.EDINP 08:27 → SUATTDRO 08:27 → N.5E 08:58 → N.CC 06-28 09:21
PROVIDERS: ADMIT Internal Medicine; ATTEND Internal Medicine